=== PATIENT | female | born 1955 | race Caucasian/White ===

== ENCOUNTER 2016-10-21 08:19 | Emergency (ER) | payer BC ==
[~2016-10-21] VITALS: Ht 149.9 cm; Wt 84.4 kg
[~2016-10-21 08:19] MED LIST: ADVAIR 100/501 DISK IH; Aspirin E.C. PO; Berocca Plus PO; FENOFIBRATE160 M1 PO; FUROSEMIDE20 MG PO; ISOSORBIDE DINI30 MG PO; ISOSORBIDE MONO30 MG PO; Keflex PO; LEVAQUIN750 MG PO; LISINOPRIL20 MG PO; METOPROLOL TART25 MG PO; MOTRIN600 MG PO; NAPROSYN500 MG PO; NAPROXEN500 MG PO; NITROSTAT0.4 MG SL; NORCO 5/3251 TABLET PO; NORVASC10 MG PO; OMEPRAZOLE20 MG PO; PLAVIX75 MG PO; PREDNISONE10 MG PO; PREDNISONE50 MG PO; PRINIVIL10 MG PO; PROAIR HFA8.5 GM IH; PROVENTIL,2.5 MG/3 M IH; Proventil,Ventolin H IH; ROPINIROLE HCL1 MG PO; Robitussin, Organidi PO; SIMVASTATIN40 MG PO; SPIRIVA1 INHALATI IH; TAMIFLU75 MG PO; ULTRAM50 MG PO; VOLTAREN 1% GE100 GM; ZESTRIL,PRINIVI20 MG PO; ZITHROMAX Z-PA250 MG PO; Zestril,Prinivil PO; Zithromax PO; predniSONE PO
[2016-10-21] MEDS ORDERED: MOBIC7.5 MG PO (12:34)
[2016-10-21] MEDS ORDERED: PERCOCET 5/31 TABLET PO (12:34)
[2016-10-21] MEDS ORDERED: NORCO 5/3251 TABLET PO (14:05)
[2016-10-21 14:39] VITALS: BP 152/87
== END 2016-10-21 14:41 | disposition home or self-care (01) ==
LOC: EME 08:19
PROC: 2W3UX1Z Immobilization of Right Toe using Splint (ICD-10-PCS; principal; 2016-10-21)
DX: S92.511A Displaced fracture of proximal phalanx of right lesser toe(s), initial encounter for closed fracture (principal); M17.11 Unilateral primary osteoarthritis, right knee; W18.30XA Fall on same level, unspecified, initial encounter; Z88.6 Allergy status to analgesic agent
CPT/HCPCS: 73564; 73590; 73610; 73630; 99281; 99283

== ENCOUNTER 2017-02-07 14:46 | Emergency (ER) | payer BC ==
[~2017-02-07] VITALS: Ht 149.9 cm; Wt 85.3 kg
[~2017-02-07 14:46] MED LIST changes: +MOBIC7.5 MG PO; +PERCOCET 5/31 TABLET PO
[2017-02-07] MEDS ORDERED: EPIPEN ADU0.3 MG/0.3 IM (17:43)
[2017-02-07] MEDS ORDERED: PEPCID20 MG PO (17:43)
[2017-02-07] MEDS ORDERED: BENADRYL50 MG PO (17:43)
[2017-02-07] MEDS ORDERED: DELTASONE20 M1 PO (17:45)
[2017-02-07 18:01] VITALS: BP 158/86
== END 2017-02-07 18:27 | disposition home or self-care (01) ==
LOC: EME 14:46
DX: T78.40XA Allergy, unspecified, initial encounter (principal); J44.9 Chronic obstructive pulmonary disease, unspecified; I10 Essential (primary) hypertension; I25.2 Old myocardial infarction; Z98.61 Coronary angioplasty status; Z87.891 Personal history of nicotine dependence
CPT/HCPCS: 99281; 99285; J1200; J2930; S0028

== ENCOUNTER 2017-05-24 18:38 | Inpatient (IN) | payer SELFPAY ==
[~2017-05-24] VITALS: Ht 149.9 cm; Wt 80.2 kg
[~2017-05-24 18:38] MED LIST changes: +BENADRYL50 MG PO; +DELTASONE20 M1 PO; +EPIPEN ADU0.3 MG/0.3 IM; -ISOSORBIDE MONO30 MG PO; +PEPCID20 MG PO
[2017-05-24 19:06] LABS: HEMATOCRIT 38.4 % (36.0-46.0); MCH 27.5 PG (29.0-34.0); MCHC 32.8 G/DL (30.0-36.0); MCV 83.7 FL (83-99); MEAN PLAT.VOLUME 9.5 uM^3 (9.5-12.4); PLATELET COUNT 271 K/uL (156-360); RBC DIS.WIDTH-CV 13.4 % (11.8-14.6); RBC DIS.WIDTH-SD 40.5 % (39-53); RED BLOOD COUNT 4.59 M/uL (3.80-5.20)
[2017-05-24 19:16] LABS: CHLORIDE 105 mEq/L (99-109); POTASSIUM 3.1 mEq/L (3.7-5.4); SODIUM 143 mEq/L (136-147)
[2017-05-24 19:18] LABS: GLUCOSE 208 mg/dL (70-99)
[2017-05-24 19:19] LABS: ANION GAP 14 MEQ/L (2-14)
[2017-05-24 19:21] LABS: GFR ESTIMATE (CALCULATED) > 59 mL/min/
[2017-05-24 19:22] LABS: UREA NITROGEN (BUN) 10 mg/dL (9-23)
[2017-05-24 19:28] LABS: TROP-I INTERPRETATION POSITIVE
[2017-05-24 19:30] LABS: TROPONIN-I 8.56 ng/mL (0.0-0.30)
[2017-05-24 19:52] LABS: PROTHROMBIN TIME 10.9 SEC (10.2-12.9)
[2017-05-24 19:54] LABS: PTT 26.3 SEC (25-37)
[2017-05-24 22:28] VITALS: BP 179/100
[2017-05-24] MEDS ORDERED: SPIRIVA RESPIMAT4 G1 IH (23:10)
[2017-05-24 23:11] LABS: POINT-OF-CARE METER ID UU13113698
[2017-05-24] MEDS ORDERED: VITAMIN D2000 UNI1 PO (23:12)
[2017-05-24] MEDS ORDERED: CALCIUM 500 MG1 EACH PO (23:12)
[2017-05-24] MEDS ORDERED: MOTRIN IB200 MG PO (23:16)
[2017-05-24] MEDS ORDERED: ISOSORBIDE MONO30 MG PO (23:21)
[2017-05-24] MEDS ORDERED: MOBIC7.5 MG PO (23:24)
[2017-05-24] MEDS ORDERED: LO-DOSE ASPIRIN81 M2 PO (23:25)
[2017-05-24] MEDS ORDERED: COMPLETE MULTI1 EAC3 PO (23:25)
[2017-05-24 23:43] VITALS: BP 138/80
[2017-05-25 01:17] LABS: TROP-I INTERPRETATION POSITIVE
[2017-05-25 01:38] LABS: TROPONIN-I 10.24 ng/mL (0.0-0.30)
[2017-05-25 05:59] VITALS: BP 125/81
[2017-05-25 06:12] LABS: HEMATOCRIT 34.9 % (36.0-46.0); MCH 27.2 PG (29.0-34.0); MCHC 32.1 G/DL (30.0-36.0); MCV 84.7 FL (83-99); MEAN PLAT.VOLUME 9.7 uM^3 (9.5-12.4); PLATELET COUNT 250 K/uL (156-360); RBC DIS.WIDTH-CV 13.6 % (11.8-14.6); RBC DIS.WIDTH-SD 42.1 % (39-53); RED BLOOD COUNT 4.12 M/uL (3.80-5.20); WHITE BLOOD COUNT 8.4 K/uL (4.1-10.2)
[2017-05-25 06:30] LABS: ANION GAP 7 MEQ/L (2-14); CHLORIDE 107 MEQ/L (99-109); SAMPLE HEMOLYSIS CHECK 0; SAMPLE ICTERIC CHECK 0; SAMPLE LIPEMIA CHECK 0; SODIUM 143 MEQ/L (136-147); TOTAL BILIRUBIN 0.6 MG/DL (0.0-1.0)
[2017-05-25 06:35] LABS: ALKALINE PHOSPHATASE 99 IU/L (3-129); GFR ESTIMATE (CALCULATED) > 59 mL/min/; UREA NITROGEN (BUN) 12 mg/dL (9-23)
[2017-05-25 06:48] LABS: TROP-I INTERPRETATION POSITIVE; TROPONIN-I 11.83 ng/mL (0.0-0.30)
[2017-05-25 06:54] LABS: GLUCOSE 110 mg/dL (70-99)
[2017-05-25 07:30] VITALS: BP 113/72
[2017-05-25 07:57] LABS: POINT-OF-CARE METER ID UU13113698; POINT-OF-CARE USER ID ENVKC36
[2017-05-25 11:45] VITALS: BP 124/69
[2017-05-25 11:47] LABS: Estimated Average Glucose 143 mg/dL (70-123); HEMOGLOBIN A1c (GLYCOHEMOGLOB) 6.6 % HGB (Below 5.7)
[2017-05-25 11:48] LABS: POINT-OF-CARE METER ID UU13113781; POINT-OF-CARE USER ID ENVKC36
[2017-05-25 15:45] VITALS: BP 135/82
[2017-05-25 16:14] LABS: POINT-OF-CARE METER ID UU13113781; POINT-OF-CARE USER ID ENVKC36
[2017-05-25 19:54] VITALS: BP 134/75
[2017-05-25 21:06] LABS: POINT-OF-CARE METER ID UU13113698
[2017-05-25 23:56] VITALS: BP 113/60
[2017-05-26 04:20] VITALS: BP 114/68
[2017-05-26 05:30] LABS: HEMATOCRIT 36.2 % (36.0-46.0); MCH 27.2 PG (29.0-34.0); MCHC 31.8 G/DL (30.0-36.0); MCV 85.6 FL (83-99); MEAN PLAT.VOLUME 9.9 uM^3 (9.5-12.4); PLATELET COUNT 252 K/uL (156-360); RBC DIS.WIDTH-CV 13.8 % (11.8-14.6); RBC DIS.WIDTH-SD 43.1 % (39-53); RED BLOOD COUNT 4.23 M/uL (3.80-5.20); WHITE BLOOD COUNT 8.4 K/uL (4.1-10.2)
[2017-05-26 05:54] LABS: ANION GAP 8 MEQ/L (2-14); CHLORIDE 101 MEQ/L (99-109); GFR ESTIMATE (CALCULATED) > 59 mL/min/; GLUCOSE 112 mg/dL (70-99); SAMPLE HEMOLYSIS CHECK 0; SAMPLE ICTERIC CHECK 0; SAMPLE LIPEMIA CHECK 0; SODIUM 139 MEQ/L (136-147); UREA NITROGEN (BUN) 15 mg/dL (9-23)
[2017-05-26 07:43] LABS: POINT-OF-CARE METER ID UU13113781; POINT-OF-CARE USER ID NUTSLF44
[2017-05-26 08:00] VITALS: BP 111/78
[2017-05-26 11:30] LABS: POINT-OF-CARE METER ID UU13113781; POINT-OF-CARE USER ID NUTSLF44
[2017-05-26 11:41] VITALS: BP 117/67
[2017-05-26 15:41] LABS: POINT-OF-CARE METER ID UU13113819
[2017-05-26 17:47] VITALS: BP 140/42
[2017-05-26 18:30] LABS: POINT-OF-CARE METER ID UU13113698; POINT-OF-CARE USER ID NUTSLF44
[2017-05-26 19:02] VITALS: BP 136/84
[2017-05-26 21:15] LABS: POINT-OF-CARE METER ID UU14174216
[2017-05-27] VITALS: BP 134/74
[2017-05-27 05:23] LABS: EOSINOPHIL (%) 3.2 % (0-5); EOSINOPHIL COUNT 0.3 K/uL (0-0.3); HEMATOCRIT 36.1 % (36.0-46.0); IMMATURE GRANULOCYTE (%) 0.6 % (0.0-0.7); IMMATURE GRANULOCYTE COUNT 0.1 K/uL; INSTRUMENT ABS NEUTROPHIL CT 5.2 K/uL; MCH 26.8 PG (29.0-34.0); MCHC 31.9 G/DL (30.0-36.0); MCV 84.1 FL (83-99); MEAN PLAT.VOLUME 10.2 uM^3 (9.5-12.4); MONOCYTE (%) 6.1 % (3-12); MONOCYTE COUNT 0.5 K/uL (0-0.8); NEUTROPHIL (%) 64.7 % (45-76); NEUTROPHIL COUNT 5.2 K/uL (1.8-6.4); PLATELET COUNT 256 K/uL (156-360); RBC DIS.WIDTH-CV 13.4 % (11.8-14.6); RBC DIS.WIDTH-SD 41.5 % (39-53); RED BLOOD COUNT 4.29 M/uL (3.80-5.20); WHITE BLOOD COUNT 8.1 K/uL (4.1-10.2)
[2017-05-27 05:44] LABS: ANION GAP 7 MEQ/L (2-14); CHLORIDE 102 MEQ/L (99-109); GFR ESTIMATE (CALCULATED) > 59 mL/min/; GLUCOSE 97 mg/dL (70-99); POTASSIUM 4.3 MEQ/L (3.7-5.4); SAMPLE HEMOLYSIS CHECK 0; SAMPLE ICTERIC CHECK 0; SAMPLE LIPEMIA CHECK 0; SODIUM 138 MEQ/L (136-147); UREA NITROGEN (BUN) 11 mg/dL (9-23)
[2017-05-27 07:54] LABS: POINT-OF-CARE METER ID UU13113781
[2017-05-27 08:10] VITALS: BP 129/78
[2017-05-27] MEDS ORDERED: ATORVASTATIN CA40 MG PO (08:20)
[2017-05-27] MEDS ORDERED: LOPRESSOR25 MG PO (08:20)
[2017-05-27] MEDS ORDERED: CLOPIDOGREL75 MG PO (08:20)
[2017-05-27 11:27] LABS: POINT-OF-CARE METER ID UU14174216
== END 2017-05-27 12:55 | disposition home or self-care (01) | DRG 247 ==
LOC: EME 18:38 → 4EAST 21:14 → EDOF 21:14 → ENRESERV 21:15 → 4EAST 22:16
PROVIDERS: Emergency Medicine; Hospitalist; Internal Medicine Cardiovascular Disease; Physician Assistant
DX: I21.4 Non-ST elevation (NSTEMI) myocardial infarction (principal); I10 Essential (primary) hypertension; I25.110 Atherosclerotic heart disease of native coronary artery with unstable angina pectoris; E11.9 Type 2 diabetes mellitus without complications; E87.6 Hypokalemia; E66.9 Obesity, unspecified; Z68.35 Body mass index [BMI] 35.0-35.9, adult; E78.5 Hyperlipidemia, unspecified; J44.9 Chronic obstructive pulmonary disease, unspecified; M19.90 Unspecified osteoarthritis, unspecified site; J98.11 Atelectasis; G47.30 Sleep apnea, unspecified; Z95.5 Presence of coronary angioplasty implant and graft; Z86.73 Personal history of transient ischemic attack (TIA), and cerebral infarction without residual deficits; Z85.42 Personal history of malignant neoplasm of other parts of uterus; Z87.891 Personal history of nicotine dependence; Z79.82 Long term (current) use of aspirin; Z79.899 Other long term (current) drug therapy; Z83.3 Family history of diabetes mellitus
CPT/HCPCS: 71020; 80048; 80053; 82948; 83036; 84132; 84484; 85025; 85027; 85347; 85610; 85730; 93005; 94660; 99281; 99285; C1769; C1874; C1887; J0153; J1644; J1815; J2250; J2405; J3010; J3246; J7030

== ENCOUNTER 2017-06-01 19:30 | Emergency (ER) | payer SELFPAY ==
[~2017-06-01] VITALS: Ht 149.9 cm; Wt 78.2 kg
[~2017-06-01 19:30] MED LIST changes: +ATORVASTATIN CA40 MG PO; +CALCIUM 500 MG1 EACH PO; +CLOPIDOGREL75 MG PO; +COMPLETE MULTI1 EAC3 PO; +ISOSORBIDE MONO30 MG PO; +LO-DOSE ASPIRIN81 M2 PO; +LOPRESSOR25 MG PO; +MOTRIN IB200 MG PO; +SPIRIVA RESPIMAT4 G1 IH; +VITAMIN D2000 UNI1 PO
[2017-06-01 22:40] VITALS: BP 142/80
== END 2017-06-01 22:41 | disposition home or self-care (01) ==
LOC: EME 19:30
DX: M79.601 Pain in right arm (principal); M79.89 Other specified soft tissue disorders; Z98.890 Other specified postprocedural states; I10 Essential (primary) hypertension; I25.10 Atherosclerotic heart disease of native coronary artery without angina pectoris; J44.9 Chronic obstructive pulmonary disease, unspecified; Z95.5 Presence of coronary angioplasty implant and graft; Z85.42 Personal history of malignant neoplasm of other parts of uterus; Z79.82 Long term (current) use of aspirin; Z87.891 Personal history of nicotine dependence
CPT/HCPCS: 93931; 99281; 99283; J2270

== ENCOUNTER 2018-04-14 19:15 | Observation (INO) | payer BC ==
[~2018-04-14] VITALS: Ht 149.9 cm; Wt 81.6 kg
[2018-04-14 20:27] LABS: HEMATOCRIT 37.8 % (36.0-46.0); HEMOGLOBIN 12.6 G/DL (11.9-15.5); MCH 28.8 PG (29.0-34.0); MCHC 33.3 G/DL (30.0-36.0); MCV 86.3 FL (83-99); PLATELET COUNT 232 K/uL (156-360); RBC DIS.WIDTH-CV 12.2 % (11.8-14.6); RBC DIS.WIDTH-SD 38.8 % (39-53); RED BLOOD COUNT 4.38 M/uL (3.80-5.20); WHITE BLOOD COUNT 7.2 K/uL (4.1-10.2)
[2018-04-14 20:36] LABS: CHLORIDE 108 mEq/L (99-109); POTASSIUM 3.8 mEq/L (3.7-5.4); SODIUM 143 mEq/L (136-147)
[2018-04-14 20:37] LABS: GLUCOSE 104 mg/dL (70-99)
[2018-04-14 20:41] LABS: CREATININE 0.7 mg/dL (0.6-1.3); GFR ESTIMATE (CALCULATED) > 59 mL/min/
[2018-04-14 20:42] LABS: UREA NITROGEN (BUN) 15 mg/dL (9-23)
[2018-04-14 20:47] LABS: TROP-I INTERPRETATION NEGATIVE; TROPONIN-I 0.01 ng/mL (0.0-0.30)
[2018-04-14] MEDS ORDERED: ERGOCALCIF50000 UNIT PO (22:34)
[2018-04-14] MEDS ORDERED: PLAVIX75 MG PO (22:35)
[2018-04-14] MEDS ORDERED: TUDORZA PRESS400 MCG IH (22:38)
[2018-04-14] MEDS ORDERED: SYMBICORT60 INHALAT IH (22:38)
[2018-04-14] MEDS ORDERED: METAXALONE400 MG PO (22:39)
[2018-04-14 23:48] LABS: CREATINE KINASE 120 IU/L (1-294)
[2018-04-15 00:20] VITALS: BP 145/73
[2018-04-15 04:36] LABS: TROP-I INTERPRETATION NEGATIVE; TROPONIN-I < 0.01 ng/mL (0.0-0.30)
[2018-04-15 04:52] LABS: HDL CHOLESTEROL 50 MG/DL (Desirable>=50); LDL CHOLESTEROL 96 mg/dL (Desirable<100); NON-HDL CHOLESTEROL 152 mg/dL (Desirable<160); TOTAL CHOLESTEROL 202 mg/dL (Desirable<200); TRIGLYCERIDES 278 MG/DL (Normal: <150)
[2018-04-15 04:54] VITALS: BP 148/76
[2018-04-15 05:25] LABS: APPEARANCE CLEAR ((CLEAR)); BILIRUBIN NEGATIVE; BLOOD NEGATIVE; COLOR YELLOW ((YELLOW)); GLUCOSE (STRIP) >=500; KETONES NEGATIVE; LEUKOCYTES TRACE; NITRITE NEGATIVE; PROTEIN (STRIP) NEGATIVE; SPECIFIC GRAVITY 1.022 (1.000-1.030); UROBILINOGEN 0.2 MG/DL (0.2-1.0)
[2018-04-15 05:32] LABS: BACTERIA RARE /HPF; EPITHELIAL CELLS RARE /HPF; MUCUS TRACE /LPF; RED BLOOD CELLS 0-5 /HPF (0-5); UCUL ADDED? NO; WHITE BLOOD CELLS 0-5 /HPF (0-5)
[2018-04-15 08:13] VITALS: BP 138/75
[2018-04-15 09:14] LABS: TROP-I INTERPRETATION NEGATIVE; TROPONIN-I < 0.01 ng/mL (0.0-0.30)
[2018-04-15] MEDS ORDERED: AZITHROMYCIN500 M1 PO (11:01)
[2018-04-15] MEDS ORDERED: NITROSTAT0.4 MG SL (11:01)
[2018-04-15 12:47] LABS: HEMOGLOBIN A1c (GLYCOHEMOGLOB) 6.5 % (Below 5.7)
== END 2018-04-15 12:44 | disposition home or self-care (01) ==
LOC: EME 19:15 → EDOF 22:20 → 4SOUTH 22:20 → ENRESERV 22:22 → 4SOUTH 23:50 → ENPENDDIS 04-15 11:03 → 4SOUTH 04-15 12:44
PROVIDERS: Hospitalist; Physician Assistant Medical
PROC: B246ZZZ Ultrasonography of Right and Left Heart (ICD-10-PCS; principal; 2018-04-15)
DX: R07.89 Other chest pain (principal); I25.10 Atherosclerotic heart disease of native coronary artery without angina pectoris; I25.2 Old myocardial infarction; Z95.5 Presence of coronary angioplasty implant and graft; I16.0 Hypertensive urgency; I10 Essential (primary) hypertension; E78.5 Hyperlipidemia, unspecified; J44.9 Chronic obstructive pulmonary disease, unspecified; F17.210 Nicotine dependence, cigarettes, uncomplicated; Z79.82 Long term (current) use of aspirin; Z79.02 Long term (current) use of antithrombotics/antiplatelets; E11.9 Type 2 diabetes mellitus without complications; R05 Cough; R09.81 Nasal congestion; J02.9 Acute pharyngitis, unspecified; M25.512 Pain in left shoulder; R19.7 Diarrhea, unspecified; E66.9 Obesity, unspecified; Z68.36 Body mass index [BMI] 36.0-36.9, adult; Z86.19 Personal history of other infectious and parasitic diseases; Z85.42 Personal history of malignant neoplasm of other parts of uterus; Z90.49 Acquired absence of other specified parts of digestive tract; Z83.3 Family history of diabetes mellitus; Z82.0 Family history of epilepsy and other diseases of the nervous system; Z88.0 Allergy status to penicillin; Z88.5 Allergy status to narcotic agent
CPT/HCPCS: 71046; 71250; 80048; 80061; 81003; 82550; 82948; 83036; 83880; 84484; 85027; 87493; 93005; 93306; 94640; 94799; 99281; 99285; G0378; J1650; J2930; J7512

== ENCOUNTER 2018-05-06 11:20 | Day surgery (SDC) | payer BC ==
[~2018-05-06] VITALS: Ht 149.9 cm; Wt 78.0 kg
[~2018-05-06 11:20] MED LIST changes: +AZITHROMYCIN500 M1 PO; +CYCLOBENZAPRINE10 MG PO; +ERGOCALCIF50000 UNIT PO; +METAXALONE400 MG PO; +SYMBICORT60 INHALAT IH; +TUDORZA PRESS400 MCG IH; +ZANTAC150 MG PO
[2018-05-06] MEDS ORDERED: ASPIRIN81 M2 PO (11:43)
[2018-05-06 16:56] VITALS: BP 137/87
[2018-05-06 19:25] VITALS: BP 153/84
[2018-05-06 23:38] VITALS: BP 121/75
[2018-05-07 03:29] VITALS: BP 127/79
[2018-05-07 05:31] LABS: BASOPHIL COUNT 0.1 K/uL (0-0.1); EOSINOPHIL (%) 5.6 % (0-5); EOSINOPHIL COUNT 0.3 K/uL (0-0.3); HEMATOCRIT 36.6 % (36.0-46.0); IMMATURE GRANULOCYTE (%) 0.7 % (0.0-0.7); LYMPHOCYTE (%) 34.8 % (15-42); LYMPHOCYTE COUNT 2.1 K/uL (1.0-2.8); MCH 28.6 PG (29.0-34.0); MCHC 32.8 G/DL (30.0-36.0); MCV 87.4 FL (83-99); MONOCYTE (%) 7.4 % (3-12); MONOCYTE COUNT 0.5 K/uL (0-0.8); NEUTROPHIL (%) 50.5 % (45-76); NEUTROPHIL COUNT 3.1 K/uL (1.8-6.4); PLATELET COUNT 206 K/uL (156-360); RED BLOOD COUNT 4.19 M/uL (3.80-5.20); WHITE BLOOD COUNT 6.1 K/uL (4.1-10.2)
[2018-05-07 05:57] LABS: CHLORIDE 106 MEQ/L (99-109); CREATININE 0.5 MG/DL (0.6-1.3); GFR ESTIMATE (CALCULATED) > 59 mL/min/; GLUCOSE 97 mg/dL (70-99); SODIUM 142 MEQ/L (136-147); UREA NITROGEN (BUN) 12 mg/dL (9-23)
[2018-05-07 06:59] VITALS: BP 139/85
[2018-05-07 11:07] VITALS: BP 131/82
== END 2018-05-07 13:11 | disposition home or self-care (01) ==
LOC: CATH 11:20 → ENRESERV 13:19 → 2SOUTH 14:53 → 4EAST 17:00 → ENPENDDIS 05-07 → 4EAST 05-07 13:11
PROVIDERS: Internal Medicine Cardiovascular Disease
PROC: B2111ZZ Fluoroscopy of Multiple Coronary Arteries using Low Osmolar Contrast (ICD-10-PCS; principal; 2018-05-06)
PROC: 4A023N7 Measurement of Cardiac Sampling and Pressure, Left Heart, Percutaneous Approach (ICD-10-PCS; principal; 2018-05-06)
PROC: 027034Z Dilation of Coronary Artery, One Artery with Drug-eluting Intraluminal Device, Percutaneous Approach (ICD-10-PCS; principal; 2018-05-06)
PROC: B240ZZ3 Ultrasonography of Single Coronary Artery, Intravascular (ICD-10-PCS; principal; 2018-05-06)
DX: T82.858A Stenosis of other vascular prosthetic devices, implants and grafts, initial encounter (principal); I25.10 Atherosclerotic heart disease of native coronary artery without angina pectoris; Y83.1 Surgical operation with implant of artificial internal device as the cause of abnormal reaction of the patient, or of later complication, without mention of misadventure at the time of the procedure; R00.1 Bradycardia, unspecified; I25.2 Old myocardial infarction
CPT/HCPCS: 80048; 82948; 85025; 85347; 93005; 94640; 94799; C1725; C1769; C1874; C1887; G0378; J1644; J2250; J3010; J7030